=== PATIENT | female | born 1960 | race Caucasian/White ===

== ENCOUNTER → 2018-06-15 | Outpatient (CLI) | payer OTHER ==
[~2018-06-15] MED LIST: ALLERGY PILL; ASPIR-TRIN325 MG PO; CARISOPRODOL 3350 MG PO; ESTRATEST; LEXAPRO 10 MG T10 M1 PO; NORCO 5-325 TA1 EACH PO; PERCOCET PO; PREDNISONE 20 M20 M1 PO; PROPRANOLOL 1010 MG PO; VICODIN 5-5001 EACH PO; XANAX 0.25 MG0.25 MG PO; XANAX1 MG PO; ZANAFLEX2 M1 PO
== END ==
LOC: M.MRI 11:08
DX: R42 Dizziness and giddiness (principal); W19.XXXA Unspecified fall, initial encounter